=== PATIENT | male | born 1935 | race Caucasian/White ===

== ENCOUNTER 2025-02-07 21:03 | Inpatient (IN) | payer MEDICARE, BC ==
[~2025-02-07] VITALS: Ht 172.7 cm; Wt 68.0 kg
[2025-02-07 21:17] VITALS: BP 145/78
[2025-02-07] MEDS ORDERED: ALPR1TAB7 PO (21:32)
[2025-02-07] MEDS ORDERED: METH4TAB3 PO (21:32)
[2025-02-07] MEDS ORDERED: PRED-429 PO (21:32)
[2025-02-07] MEDS ORDERED: DONE10TA44 PO (21:32)
[2025-02-07] MEDS ORDERED: BENA40TA8 PO (21:32)
[2025-02-07] MEDS ORDERED: TRIA60LO14 TP (21:32)
[2025-02-07] MEDS ORDERED: QUET25TA PO (21:32)
[2025-02-07] MEDS ORDERED: ATEN50TA PO (21:32)
[2025-02-07] MEDS ORDERED: SIMV-46 PO (21:32)
[2025-02-07] MEDS ORDERED: PANT40TA2 PO (21:32)
[2025-02-07] MEDS ORDERED: LEVO50TA8 PO (21:32)
[2025-02-07] MEDS ORDERED: MAG HYDROX/AL HYDROX/SIMETH 30 ML LIQUID UDC PO PRN (22:45)
[2025-02-07] MEDS ORDERED: MAGNESIUM HYDROXIDE 30 ML LIQUID UDC PO PRN (22:45)
[2025-02-07] MEDS ORDERED: TEMAZEPAM 7.5 MG CAPSULE PO PRN ×2 (22:45)
[2025-02-07] MEDS: BLOOD SUGAR DIAGNOSTIC 1 EACH STRIP VI ONE (23:35)
[2025-02-07] MEDS: LORAZEPAM 1 MG TABLET PO PRN (23:40)
[2025-02-08 08:04] VITALS: BP 122/78; TEMP 98.5; O2SAT 100
[2025-02-08] MEDS ORDERED: IBUP-2314 PO (09:30)
[2025-02-08] MEDS ORDERED: AMLO10TA59 PO (09:31)
[2025-02-08] MEDS: QUETIAPINE FUMARATE 25 MG TABLET PO SCH (13:17)
[2025-02-08 16:15] VITALS: BP 131/78; TEMP 98.5; O2SAT 100
[2025-02-08 20:00] VITALS: BP 130/63; TEMP 98; O2SAT 98
[2025-02-09 08:45] VITALS: BP 115/49; TEMP 98.5; O2SAT 100
[2025-02-09] MEDS: ENSURE ENLIVE (VAN) 240 ML LIQUID PO SCH (09:00)
[2025-02-09 20:00] VITALS: BP 104/60; TEMP 98.3; O2SAT 95
[2025-02-10] MEDS: LEVOTHYROXINE SODIUM 50 MCG TABLET PO SCH (06:21)
[2025-02-10 08:20] VITALS: BP 135/60; TEMP 98.2; O2SAT 97
[2025-02-10 08:25] LABS: PLATELET COUNT (AUTO) 239 K/uL (152-348); RED BLOOD CELL COUNT(AUTO) 4.03 MIL/uL (4.06-5.63); RED CELL DISTRIBUTION WIDTH 13.5 % (12.1-16.2); WHITE BLOOD COUNT (AUTO) 9.2 K/uL (3.6-10.2)
[2025-02-10] MEDS: AMLODIPINE 5 MG TABLET PO SCH (08:51)
[2025-02-10] MEDS: NEOMY/BACITRAC/POLYMI OINT 28.35 GM TUBE TOP SCH (08:53)
[2025-02-10 09:17] LABS: ASPARTATE AMINOTRANSFERASE 10 U/L (15-37); CREATININE 0.9 mg/dL (0.6-1.3); SODIUM SERUM 144 mmol/L (136-145); TOTAL PROTEIN, SERUM 5.5 g/dL (6.4-8.2); UREA NITROGEN, BLOOD 13 mg/dL (7-18)
[2025-02-10 11:04] LABS: EOSINOPHILS % (MANUAL) 1 % (0-8); LYMPHOCYTES % (MANUAL) 13 % (20-40); MONOCYTES % (MANUAL) 15 % (2-10); NEUTROPHILS % (MANUAL) 71 % (42-75)
[2025-02-10 11:05] LABS: PLATELET ESTIMATE ADEQUATE
[2025-02-10] MEDS: POTASSIUM CHLORIDE 20 MEQ TAB.PRT.SR PO ONE (13:13)
[2025-02-10 17:24] VITALS: BP 159/63; TEMP 98.1; O2SAT 98
[2025-02-10 20:07] VITALS: BP 141/62; TEMP 98.1; O2SAT 96
[2025-02-11 07:46] VITALS: BP 127/66; TEMP 98.2; O2SAT 96
[2025-02-11 15:06] VITALS: BP 128/65; TEMP 98; O2SAT 98
[2025-02-11 19:46] VITALS: BP 124/66; TEMP 98.1; O2SAT 96
[2025-02-12 07:59] VITALS: BP 117/57; TEMP 98.2; O2SAT 100
[2025-02-12 15:12] VITALS: BP 129/59; TEMP 98; O2SAT 98
[2025-02-12] MEDS: ACETAMINOPHEN 325 MG TABLET PO PRN (20:37)
[2025-02-12 22:00] VITALS: BP 137/60; TEMP 98.6; O2SAT 99
[2025-02-13 07:43] VITALS: BP 129/63; TEMP 98.4; O2SAT 98
[2025-02-13 16:21] VITALS: BP 129/60; TEMP 98.7; O2SAT 100
[2025-02-13 19:49] VITALS: BP 122/49; TEMP 99.5; O2SAT 97
[2025-02-14 08:39] VITALS: BP 108/45; TEMP 98.7; O2SAT 100
[2025-02-14 16:21] VITALS: BP 102/61; TEMP 98.7; O2SAT 100
[2025-02-14 19:49] VITALS: BP 119/67; TEMP 98.1; O2SAT 97
[2025-02-15 08:50] VITALS: BP 103/52; TEMP 98.7; O2SAT 100
[2025-02-15 16:31] VITALS: BP 101/55; TEMP 98.7; O2SAT 100
[2025-02-15 19:37] VITALS: BP 104/54; TEMP 98.2; O2SAT 98
[2025-02-15] MEDS: LORAZEPAM 1 MG TABLET PO PRN (22:09)
[2025-02-16 08:47] VITALS: BP 115/60; TEMP 98.7; O2SAT 100
[2025-02-16 16:31] VITALS: BP 117/60; TEMP 98.7; O2SAT 100
[2025-02-16 19:50] VITALS: BP 136/60; TEMP 98.1; O2SAT 99
[2025-02-16 19:52] VITALS: BP 136/60; TEMP 98.1; O2SAT 99
[2025-02-17] MEDS: TEMAZEPAM 15 MG CAPSULE PO PRN (01:16)
[2025-02-17 08:00] VITALS: BP 110/42; TEMP 97.6; O2SAT 98
[2025-02-17 16:00] VITALS: BP 131/65; TEMP 98.1; O2SAT 99
[2025-02-17 19:54] VITALS: BP 124/60; TEMP 98.7; O2SAT 97
[2025-02-17] MEDS: diphenhydrAMINE 25 MG CAP PO PRN (20:29)
[2025-02-18 07:51] VITALS: BP 117/60; TEMP 98.4; O2SAT 98
[2025-02-18] MEDS ORDERED: TRIAMCINOLONE ACET 0.1% CREAM 15 GM TUBE TOP SCH (09:00)
[2025-02-18] MEDS: SERTRALINE HCL 50 MG TABLET PO SCH (09:06)
[2025-02-18] MEDS: TRIAMCINOLONE ACET 0.1% CREAM 15 GM TUBE TOP SCH (10:06)
[2025-02-18 15:22] VITALS: BP 113/69; TEMP 98; O2SAT 98
[2025-02-18 20:31] VITALS: BP 110/59; TEMP 98.6; O2SAT 97
[2025-02-18] MEDS ORDERED: diphenhydrAMINE 25 MG CAP PO ONE (20:38)
[2025-02-19 08:02] VITALS: BP 112/60; TEMP 98; O2SAT 99
[2025-02-19 09:26] VITALS: BP 112/60
== END 2025-02-19 11:50 | DRG 885 ==
LOC: ER 21:05 → GPS 21:48
PROVIDERS: ADMIT Psychiatry & Neurology Psychiatry
DX: F29 Unspecified psychosis not due to a substance or known physiological condition (principal); F03.918 Unspecified dementia, unspecified severity, with other behavioral disturbance; E03.9 Hypothyroidism, unspecified; S00.83XA Contusion of other part of head, initial encounter; W19.XXXA Unspecified fall, initial encounter; Y92.89 Other specified places as the place of occurrence of the external cause; E78.5 Hyperlipidemia, unspecified; Z79.890 Hormone replacement therapy; Z79.899 Other long term (current) drug therapy; Z87.891 Personal history of nicotine dependence; F43.10 Post-traumatic stress disorder, unspecified; Z91.52 Personal history of nonsuicidal self-harm; I10 Essential (primary) hypertension
CPT/HCPCS: 36415; 70030-TC; 83735; 84100; 84443; Q0163